=== PATIENT | female | born 1945 | race Caucasian/White ===

== ENCOUNTER 2021-12-23 11:31 | Outpatient (CLI) | payer MEDICARE, BC ==
[2021-12-23 20:47] LABS: SARS-CoV-2 PCR by NAA Not Detected (NotDetected)
== END 2021-12-23 11:32 | disposition home or self-care (01) ==
LOC: CSHLAB 11:31
PROVIDERS: ATTEND Family Medicine
DX: Z20.822 Contact with and (suspected) exposure to COVID-19 (principal)
CPT/HCPCS: U0003; U0005

== ENCOUNTER 2025-01-07 17:37 | Emergency (ER) | payer MEDICARE, BC ==
[2025-01-07] MEDS ORDERED: Acetaminophen 325 MG TAB ONE (17:45)
[2025-01-07] MEDS ORDERED: Boostrix 0.5 ML (Tdap) VIAL (>/=7 yrs of age) ONE (17:51)
[2025-01-07] MEDS ORDERED: Lidocaine 1% PF 5 ML VIAL ONE (18:37)
== END 2025-01-07 20:12 | disposition home or self-care (01) ==
LOC: CSHERS 17:37
DX: S01.81XA Laceration without foreign body of other part of head, initial encounter (principal); I10 Essential (primary) hypertension; Z23 Encounter for immunization; W05.0XXA Fall from non-moving wheelchair, initial encounter
CPT/HCPCS: 12011; 70450; 90471; 90715; 93005